=== PATIENT | female | born 1965 | race Caucasian/White ===

== ENCOUNTER 2018-02-07 15:24 | Emergency (ER) | payer OTHER ==
[~2018-02-07] VITALS: Ht 162.6 cm; Wt 70.3 kg
[2018-02-07 15:26] VITALS: BP 121/69
[2018-02-07] MEDS: MECLIZINE 25 MG TAB PO ONE (15:45)
[2018-02-07] MEDS: MORPHINE SULFATE 2 MG/ML SYR IM ONE (15:46)
[2018-02-07] MEDS: KETOROLAC 60 MG/2 ML VIAL IM ONE (15:49)
[2018-02-07] MEDS: PROMETHAZINE 25 MG/ML VIAL IM ONE (15:51)
[2018-02-07 16:27] LABS: APPEARANCE,URINE CLEAR (CLEAR); BILIRUBIN,URINE NEGATIVE (NEGATIVE); BLOOD, URINE NEGATIVE (NEGATIVE); COLOR,URINE YELLOW (YELLOW); LEUKOCYTE ESTERASE ,URINE 1+ (NEGATIVE); NITRITE, URINE NEGATIVE (NEGATIVE); UGLUCOSE NEGATIVE (NEGATIVE)
[2018-02-07 16:41] LABS: RBC,URINE 0-5 (RARE) /HPF (0-5)
[2018-02-07 17:20] VITALS: BP 113/69
== END 2018-02-07 17:20 | disposition home or self-care (01) ==
LOC: MED 15:24
DX: G44.009 Cluster headache syndrome, unspecified, not intractable (principal); G44.209 Tension-type headache, unspecified, not intractable; R42 Dizziness and giddiness; R11.0 Nausea
CPT/HCPCS: 70450; 81001; 81025; 87086; 87186; 96372; 99285; J1885; J2270; J2550; J8597